=== PATIENT | female | born 1965 | race Caucasian/White ===

== ENCOUNTER → 2016-10-08 | Outpatient (CLI) | payer MEDICARE, OTHER ==
--- NOTE | 2016-10-08 11:55 | REP ---
Digital diagnostic unilateral left breast mammography with CAD: History: 6-month follow-up benign stereotactic needle biopsy left breast for microcalcifications. Comparison is made with post biopsy marker clip placement views from March 20, 2016 and February 26, 2016 prior images. Findings: The marker clip is seen at the site where prior mammography showed microcalcifications. The microcalcific grouping has been removed. No new microcalcifications are seen. No mass lesion is observed. No new mammographic finding. Impression: BIRADS category 2 benign left breast imaging. Annual bilateral screening mammography can be resumed. BI-RADS/ACR category 2 mammogram. Benign finding(s). Routine annual screening mammography (for women over age 40). This mammogram was interpreted with the aid of an FDA-approved computer-aided detection system. The patient states she had a clinical breast exam in September 2016. The patient letter being requested is M2. Signed by Wilman Klein MD 10/08/2016 02:34 P
== END ==
LOC: M RAD 11:19
PROVIDERS: ATTEND Nurse Practitioner Family
DX: Z12.31 Encounter for screening mammogram for malignant neoplasm of breast (principal)

== ENCOUNTER → 2018-06-29 | Outpatient (REF) | payer MEDICARE ==
[2018-07-03 14:27] LABS: HPV HYBRID CAPTURE II Negative (Negative)
== END ==
LOC: M SFHCWAGY 08:37
DX: Z12.4 Encounter for screening for malignant neoplasm of cervix (principal); R87.610 Atypical squamous cells of undetermined significance on cytologic smear of cervix (ASC-US)
CPT/HCPCS: G0123

== ENCOUNTER → 2018-06-29 | Outpatient (CLI) | payer MEDICARE | LOC: M WHC 08:12 | DX: Z12.31 Encounter for screening mammogram for malignant neoplasm of breast (principal); Z78.0 Asymptomatic menopausal state; Z92.0 Personal history of contraception; Z92.89 Personal history of other medical treatment; Z12.4 Encounter for screening for malignant neoplasm of cervix; R87.610 Atypical squamous cells of undetermined significance on cytologic smear of cervix (ASC-US) | CPT/HCPCS: 77067; G0123 ==

== ENCOUNTER → 2019-06-30 | Outpatient (REF) | payer MEDICARE | LOC: M SFHCWAGY 08:37 | PROVIDERS: ATTEND Nurse Practitioner Family | DX: Z12.4 Encounter for screening for malignant neoplasm of cervix (principal) ==

== ENCOUNTER → 2019-06-30 | Outpatient (CLI) | payer MEDICARE ==
--- NOTE | 2019-06-30 09:49 | REPMRS ---
Patient History The patient states she had a clinical breast exam in 06/2019. Patient is postmenopausal. Family history of prostate cancer at age 70 in father, prostate cancer at age 62 and pancreatic cancer at age 55 in paternal uncle. Benign radio exam breast specimen of the left breast, March 20, 2016. Benign stereotatic loc for ea lesion of the left breast, March 20, 2016. Took hormonal contraceptives for 3 years. 3D TOMOSYNTHESIS WAS PERFORMED. The [facility] lifetime risk for breast cancer is 7.5%. Digital Woman Screen Mammo: June 30, 2019 - Exam #: [id number] Bilateral CC and MLO view(s) were taken. Technologist: Yumiko Franks, Technologist Prior study comparison: June 29, 2018, bilateral digital woman screen mammo performed at [facility]. June 27, 2017, digital woman screen mammo performed at [facility]. FINDINGS: The breast tissue is heterogeneously dense. This may lower the sensitivity of mammography. There has been no change in the appearance of the mammogram from the prior studies. There is a moderate amount of residual fibroglandular tissue which is fairly symmetric. There is no interval development of dominant mass, areas of architectural distortion, or clustered microcalcification typical of malignancy. Assessment: BI-RADS/ACR category 1 mammogram. Negative Mammogram. Recommendation Routine screening mammogram in 1 year (for women over age 40). This mammogram was interpreted with the aid of an FDA-approved computer-aided dectection system. Electronically Signed By: Jaciel Jeter MD 06/30/19 0937
== END ==
LOC: M WHC 08:12
PROVIDERS: ATTEND Nurse Practitioner Family
DX: Z01.419 Encounter for gynecological examination (general) (routine) without abnormal findings (principal); Z12.31 Encounter for screening mammogram for malignant neoplasm of breast; Z78.0 Asymptomatic menopausal state; Z80.42 Family history of malignant neoplasm of prostate; Z86.018 Personal history of other benign neoplasm; Z92.0 Personal history of contraception
CPT/HCPCS: 77063; 77067; G0101; G0123

== ENCOUNTER → 2020-07-04 | Outpatient (CLI) | payer MEDICARE ==
--- NOTE | 2020-07-04 09:29 | REPMRS ---
Patient History The patient states she had a clinical breast exam in July 2020. Family history of prostate cancer at age 70 in father, prostate cancer at age 62 and pancreatic cancer at age 55 in paternal uncle. Benign radio exam breast specimen of the left breast, March 20, 2016. Benign stereotatic loc for ea lesion of the left breast, March 20, 2016. Took hormonal contraceptives for 3 years. 3D TOMOSYNTHESIS WAS PERFORMED. The [facility] lifetime risk for breast cancer is 7.3%. Volpara breast density c. Digital Woman Screen Mammo: July 04, 2020 - Exam #: [id number] Bilateral CC and MLO view(s) were taken. Technologist: RT Kat Prior study comparison: June 30, 2019, bilateral digital woman screen mammo performed at [facility]. June 29, 2018, bilateral digital woman screen mammo performed at [facility]. FINDINGS: The breast tissue is heterogeneously dense. This may lower the sensitivity of mammography. There has been no change in the appearance of the mammogram from the prior studies. There is a moderate amount of residual fibroglandular tissue which is fairly symmetric. There is no interval development of dominant mass, areas of architectural distortion, or clustered microcalcification typical of malignancy. Assessment: BI-RADS/ACR category 1 mammogram. Negative Mammogram. Recommendation Routine screening mammogram in 1 year (for women over age 40). This mammogram was interpreted with the aid of an FDA-approved computer-aided dectection system. Electronically Signed By: Jaciel Jeter MD 07/04/20 0929
== END ==
LOC: M WHC 08:27
PROVIDERS: ATTEND Nurse Practitioner Family
DX: Z12.31 Encounter for screening mammogram for malignant neoplasm of breast (principal); Z80.42 Family history of malignant neoplasm of prostate; Z86.018 Personal history of other benign neoplasm; Z92.0 Personal history of contraception